=== PATIENT | female | born 1985 | race Caucasian/White ===

== ENCOUNTER 2019-03-23 15:45 | Emergency (ER) | payer OTHER ==
[~2019-03-23] VITALS: Ht 154.9 cm; Wt 77.1 kg
[~2019-03-23 15:45] MED LIST: AMOXICILLIN 50500 MG PO; CYCLOBENZAPRINE5 MG PO; HYDROCODON-ACE1 EAC7 PO; MOTION RELIEF25 MG PO; NAPROSYN500 MG PO; SUDAFED 12 HOU120 MG PO; TRAMADOL 50 MG50 MG PO; ZOLOFT
[2019-03-23] MEDS ORDERED: WELLBUTRIN SR150 MG PO (16:01)
[2019-03-23] MEDS ORDERED: BUSPIRONE HCL15 MG PO (16:02)
[2019-03-23 16:31] LABS: ABSOLUTE BASOPHILS 0.1 thou/uL (0.0-0.2); ABSOLUTE EOSINOPHILS 0.4 thou/uL (0.0-0.7); ABSOLUTE LYMPHOCYTES 1.5 thou/uL (0.8-5.3); ABSOLUTE MONOCYTES 0.4 thou/uL (0.0-1.2); ABSOLUTE NEUTROPHILS 4.9 thou/uL (1.6-8.1); BASOPHILS 0.9 %; EOSINOPHILS 5.6 %; HEMATOCRIT 39.5 % (37.0-47.0); HEMOGLOBIN 13.4 gm/dL (12.0-15.0); LYMPHOCYTES 20.6 %; MCH 29.5 pg (26.0-34.0); MCHC 33.9 g/dL (28.0-37.0); MONOCYTES 5.9 %; MPV 8.7 fl. (7.2-11.1); NUCLEATED RBCS 0 /100WBC; PLATELET COUNT* 332 thou/uL (150-400); RBC 4.54 mil/uL (4.20-5.00); RDW-CV 12.9 % (10.5-14.5); WBC 7.3 thou/uL (4.0-11.0)
[2019-03-23 16:32] LABS: URINE BILIRUBIN NEGATIVE (Negative); URINE BLOOD NEGATIVE (Negative); URINE COLOR YELLOW; URINE GLUCOSE-RANDOM NEGATIVE (Negative); URINE KETONES TRACE (Negative); URINE LEUKOCYTES-REFLEX TRACE (Negative); URINE NITRITE-REFLEX NEGATIVE (Negative); URINE PROTEIN NEGATIVE (Negative); URINE SPECIFIC GRAVITY 1.015 (1.005-1.030); URINE UROBILINOGEN 0.2 E.U./dl (0.2-1.0)
[2019-03-23 16:35] LABS: URINE CLARITY HAZY
[2019-03-23 16:40] LABS: CALCIUM 8.4 mg/dL (8.5-10.1); CREATININE 0.9 mg/dL (0.6-1.3); POTASSIUM 3.6 mmol/L (3.5-5.1)
[2019-03-23 16:42] LABS: SQUAMOUS >10 Many /LPF (0-3)
[2019-03-23 16:43] LABS: BACTERIA-REFLEX >30 Many /HPF (None Seen); CASTS None Seen /LPF (None Seen); CRYSTALS None Seen /LPF (None Seen); URINE RBC None Seen /HPF (0-2); URINE WBC-REFLEX 6-15 Few /HPF (0-5)
[2019-03-23 16:46] LABS: ALBUMIN 3.9 g/dL (3.4-5.0); TOTAL BILIRUBIN 0.3 mg/dL (<0.1-1.0); TOTAL PROTEIN 7.4 g/dL (6.4-8.2)
[2019-03-23] MEDS ORDERED: BENTYL 20 MG TA20 M1 PO (17:49)
[2019-03-23] MEDS ORDERED: ZOFRAN ODT4 MG PO (17:49)
[2019-03-23] MEDS ORDERED: CIPRO500 M1 PO (17:49)
[2019-03-23 18:03] VITALS: BP 139/85
== END 2019-03-23 18:05 | disposition home or self-care (01) ==
LOC: M.ERS 15:45
PROVIDERS: Physician Assistant
DX: K52.9 Noninfective gastroenteritis and colitis, unspecified (principal); N39.0 Urinary tract infection, site not specified; N80.9 Endometriosis, unspecified; Z90.710 Acquired absence of both cervix and uterus

== ENCOUNTER → 2019-04-21 | Outpatient (CLI) | payer OTHER ==
[~2019-04-21] MED LIST changes: +BENTYL 20 MG TA20 M1 PO; +BUSPIRONE HCL15 MG PO; +CIPRO500 M1 PO; +WELLBUTRIN SR150 MG PO; +ZOFRAN ODT4 MG PO
== END ==
LOC: M.RAD 13:17
DX: M51.34 Other intervertebral disc degeneration, thoracic region (principal); M25.78 Osteophyte, vertebrae; M25.512 Pain in left shoulder; Z87.828 Personal history of other (healed) physical injury and trauma

== ENCOUNTER 2019-07-25 09:13 | Emergency (ER) | payer OTHER ==
[~2019-07-25] VITALS: Ht 154.9 cm; Wt 70.8 kg
[2019-07-25 09:42] LABS: ABSOLUTE EOSINOPHILS 0.3 thou/uL (0.0-0.7); ABSOLUTE LYMPHOCYTES 1.5 thou/uL (0.8-5.3); ABSOLUTE MONOCYTES 0.5 thou/uL (0.0-1.2); ABSOLUTE NEUTROPHILS 4.7 thou/uL (1.6-8.1); BASOPHILS 0.5 %; EOSINOPHILS 3.8 %; HEMOGLOBIN 13.6 gm/dL (12.0-15.0); LYMPHOCYTES 21.2 %; MCHC 34.8 g/dL (28.0-37.0); MCV 86.3 fL (80.0-100.0); MONOCYTES 7.7 %; MPV 8.3 fl. (7.2-11.1); NUCLEATED RBCS 0 /100WBC; PLATELET COUNT* 326 thou/uL (150-400); POLYS 66.8 %; RBC 4.52 mil/uL (4.20-5.00); RDW-CV 12.8 % (10.5-14.5)
[2019-07-25 09:48] LABS: CALCIUM 8.6 mg/dL (8.5-10.1); CREATININE 0.8 mg/dL (0.6-1.3); POTASSIUM 3.4 mmol/L (3.5-5.1)
[2019-07-25 09:58] LABS: MAGNESIUM 2.2 mg/dL (1.8-2.4); TOTAL BILIRUBIN 0.4 mg/dL (<0.1-1.0); TOTAL PROTEIN 7.5 g/dL (6.4-8.2)
[2019-07-25] MEDS ORDERED: NORCO 5-325 TA1 EAC1 PO (10:15)
[2019-07-25 10:28] VITALS: BP 156/77
--- NOTE | 2019-07-25 16:37 | EKG ---
[place] [address] ELECTROCARDIOGRAM REPORT Name: DANIELLE REED Room: [facility]#: [id number] Admission: 07/25/19 Attend Phys: Discharge: 07/25/19 Date of : 85 Date of Service: 07/25/19917 Report #: [id number] THIS REPORT FOR: //name// [facility] ED Test Date: 2019-07-25 Test Time: 09:18:55 Pat Name: DANIELLE REED Department: Room: Gender: F Music Writer: CCD : 1985 Requested By: Rodolfo Jarvis Order Number: [id number] MD: Choco Hawkins Measurements Intervals [place] Rate: 88 P: 33 IN: 122 QRS: 29 QRSD: 98 T: 44 QT: 362 QTc: 438 Interpretive Statements Sinus rhythm No previous ECG available for comparison Electronically Signed On 07-25-2019 16:36:02 CDT by Choco Hawkins [email or web address] <ELECTRONICALLY SIGNED> By: Choco Hawkins MD, [facility] 07/25/19 1636 7 7 Choco Hawkins MD, FACC /EPI
== END 2019-07-25 10:32 | disposition home or self-care (01) ==
LOC: M.ERS 09:13
PROVIDERS: Emergency Medicine Emergency Medical Services
DX: M94.0 Chondrocostal junction syndrome [Tietze] (principal); N80.9 Endometriosis, unspecified; F32.9 Major depressive disorder, single episode, unspecified; Z20.828 Contact with and (suspected) exposure to other viral communicable diseases; Z90.710 Acquired absence of both cervix and uterus; Z90.49 Acquired absence of other specified parts of digestive tract